=== PATIENT | female | born 1985 | race Caucasian/White ===

== ENCOUNTER 2022-09-05 14:33 | Emergency (ER) | payer BC, OTHER ==
[2022-09-05 14:43] VITALS: BMI 41.5
[2022-09-05] MEDS ORDERED: SODIUM CHLORIDE 1,000 ML IV STA (16:14)
[2022-09-05] MEDS ORDERED: ACETAMINOPHEN 1000 MG/100 ML BAG IVPB ONE (16:15)
[2022-09-05] MEDS ORDERED: ACETAMINOPHEN INJECTION 100 ML IVPB ONE (16:17)
[2022-09-05 16:42] LABS: BASO % 0.6 % (0-2.0); EOS % 1.2 % (0-4.5); HEMATOCRIT 43.6 % (32.4-45.2); HEMOGLOBIN 14.1 GM/dL (10.7-15.3); LYMPH % 21.7 % (8-40); MCH 27.8 pg (25.7-33.7); MCHC 32.4 g/dl (32.0-36.0); MEAN CELL VOLUME 85.9 fl (80-96); MEAN PLT VOLUME 9.8 fl (7.5-11.1); MONO % 3.4 % (3.8-10.2); NEUT % 73.1 % (42.8-82.8); PLATELET COUNT 257 10^3/uL (134-434); RBC 5.07 M/mm3 (3.60-5.2); RDW 14.7 % (11.6-15.6); WHITE BLOOD COUNT 10.5 K/mm3 (4.0-10.0)
[2022-09-05 16:45] LABS: EPI CELLS 16 /uL (0-25.1); HCG,QUALITATIVE URINE Negative; HYALINE CASTS 2 /uL (0-3.1); PH,URINE 5.5 (5.0-8.0); URINE APPEARANCE CLOUDY; URINE BACTERIA 440 /uL (0-1359); URINE BILIRUBIN NEGATIVE (NEGATIVE); URINE COLOR YELLOW; URINE GLUCOSE (UA) NEGATIVE (NEGATIVE); URINE KETONE TRACE (NEGATIVE); URINE LEUK ESTERASE 2+ (NEGATIVE); URINE NITRITE NEGATIVE (NEGATIVE); URINE PROTEIN 1+ (NEGATIVE); URINE RBC 1452 /uL (0-23.9); URINE WBC 506 /uL (0-25.8)
[2022-09-05 16:55] LABS: POTASSIUM 4.6 mmol/L (3.5-5.1)
[2022-09-05 16:57] LABS: ALBUMIN 3.6 g/dl (3.4-5.0); BLOOD UREA NITROGEN 12.6 mg/dL (7-18); CALCIUM 8.7 mg/dL (8.5-10.1)
[2022-09-05 17:00] LABS: CREATININE 0.9 mg/dL (0.55-1.3)
[2022-09-05 17:02] LABS: BILIRUBIN,TOTAL 0.4 mg/dL (0.2-1); TOT PROT 7.6 g/dl (6.4-8.2)
[2022-09-05] MEDS ORDERED: CEFTRIAXONE 1 GM/50 ML BAG ONE (17:35)
[2022-09-05] MEDS ORDERED: cefTRIAXone SODIUM 1 GM VIAL ONE (17:38)
[2022-09-05] MEDS ORDERED: CEFTRIAXONE 1 GM in DEXTROSE 5%-WATER - 100 ML IVPB ONE (17:40)
[2022-09-05 19:53] VITALS: BP 144/84; PULSE 68; RESP 18; TEMP 98.1
== END 2022-09-05 20:15 | disposition home or self-care (01) ==
LOC: JER 14:33
PROC: 3E033GC Introduction of Other Therapeutic Substance into Peripheral Vein, Percutaneous Approach (ICD-10-PCS; principal; 2022-09-05)
DX: N13.2 Hydronephrosis with renal and ureteral calculous obstruction (principal)
CPT/HCPCS: 36415; 74176-TC; 76775-TC; 80053; 81003; 83690; 84703; 85025; 87086; 99285-25

== ENCOUNTER → 2022-11-09 | Day surgery (SDC) | payer BC, OTHER ==
[2022-11-04 16:48] VITALS: BMI 41.5
[~2022-11-09] MED LIST: KETOROLAC TROMETHAMINE 30 MG/1 ML VIAL ONE; MIDAZOLAM HCL 2 MG/2 ML SINGLE DOSE VIAL ONE; PROPOFOL 20 ML ONE
[2022-11-09 06:54] VITALS: RESP 20
[2022-11-09 11:28] VITALS: TEMP 97.8
[2022-11-09 11:34] VITALS: BP 169/88; PULSE 70
== END | disposition home or self-care (01) ==
LOC: JASU-SURG 03:41
PROVIDERS: ATTEND Urology
PROC: 0TF3XZZ Fragmentation in Right Kidney Pelvis, External Approach (ICD-10-PCS; principal; 2022-11-09 07:30)
DX: N20.0 Calculus of kidney (principal)
CPT/HCPCS: 81025